=== PATIENT | male | born 1990 | race American Indian/Alaskan Native ===

== ENCOUNTER 2016-09-01 20:33 | Emergency (ER) | payer OTHER ==
[2016-09-01] MEDS ORDERED: Sodium Chloride 0.9% 10 ML Syringe FLUSH PRN (20:38)
[2016-09-01] MEDS ORDERED: Ondansetron 4 MG/2 ML SDV IVPUSH ONE (20:49)
[2016-09-01] MEDS ORDERED: Sodium Chloride 0.9% 1,000 ML IV ONE (20:49)
[2016-09-01] MEDS ORDERED: Morphine 4 MG/ML Syringe IVPUSH ONE (21:31)
[2016-09-01] MEDS ORDERED: Ketorolac 30 MG/ML SDV IVPUSH ONE (21:31)
[2016-09-01 21:35] LABS: CHLORIDE,CL 98 mmol/L (98-107); SODIUM,NA 134 mmol/L (136-145)
[2016-09-01] MEDS ORDERED: cefTRIAXone 2 GM Vial IVPUSH ONE (21:49)
[2016-09-01] MEDS ORDERED: Take Home: Albuterol 6.7 GM Inhaler, 1 Inhaler Pack INH ONE (22:07)
[2016-09-01] MEDS ORDERED: Take Home: Acetaminophen/HYDROcodone 325-5 MG, 5 Tab Pack PO ONE (22:08)
[2016-09-01] MEDS ORDERED: methylPREDNISolone Sodium Succinate 125 MG/2 ML SDV IV ONE (22:08)
[2016-09-01 23:07] VITALS: BP 124/79
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
== END 2016-09-01 22:32 | disposition home or self-care (01) ==
LOC: VM.ED 20:33
DX: J18.9 Pneumonia, unspecified organism (principal); A08.4 Viral intestinal infection, unspecified
CPT/HCPCS: 36415; 71020; 80053; 83605; 84484; 85025; 85379; 85610; 86140; 93005; 96365; 96375; 99284; A9270; J0696; J1885; J2270; J2405; J2930; J7030